=== PATIENT | female | born 1950 | race African-American/Black ===

== ENCOUNTER → 2019-04-28 | Outpatient (CLI) | payer OTHER ==
[~2019-04-28] VITALS: Ht 157.5 cm; Wt 63.5 kg
[~2019-04-28] MED LIST: BACLOFEN 10MG T10 MG PO; IBUPROFEN 600600 M1 PO; NEURONTIN 300300 M1; SINGULAIR 10 MG10 M1 PO; SINGULAIR4 MG; [UNRECOGNIZED DRUG - OTHER]
--- NOTE | 2019-04-28 10:04 | P ---
[facility] [place] [address] PROCEDURE REPORT Name: PREET CRAWFORD Room #: REG [facility]#: [id number] Admission: 04/28/19 Attend Phys: Robin Jiang MD Discharge: Date of : 48 Report #: [id number] THIS REPORT FOR: //name// CC: Robin De Leon MD DATE OF SERVICE: 04/28/2019 BRIEF HISTORY: The patient is a 68-year-old woman with a history of a rectal adenoma removed about 5 years ago. She returns today for high risk screening colonoscopy. PREOPERATIVE DIAGNOSIS: High risk screening colonoscopy due to history of rectal adenoma. POSTOPERATIVE DIAGNOSIS: Moderately severe left-sided diverticulosis coli. MEDICATIONS: Deep sedation with propofol per anesthesia. SPECIMEN: None. ESTIMATED BLOOD LOSS: None. PROCEDURE: Colonoscopy to cecum. FINDINGS: Prior to propofol sedation, procedure of colonoscopy discussed with the patient as well as potential risks and its complications. She indicates she understands and desires to proceed. DESCRIPTION OF PROCEDURE: With the patient in left lateral decubitus position, digital examination was completed, which revealed no abnormalities. Subsequently, the Olympus video colonoscope was introduced in the rectum, advanced under direct vision to the cecum. This was done with minimal difficulty. The cecum was identified by the ileocecal valve and the appendiceal orifice. I was able to advance the scope to the level of the ileocecal valve, but could not cross it due to looping of the scope. At that point, the scope was slowly withdrawn and careful circumferential views were obtained. Upon slow withdrawal of the scope, there were limitations of the prep. With cleanup, we were able to remove much of the material and overall a good prep was obtained. The mucosa within normal limits, normal vascular pattern, normal light reflex. As we withdrew the scope, no neoplastic lesions were seen. A few small diverticula were seen in the proximal colon. However, she was noted to have moderately severe diverticular disease of the sigmoid colon without endoscopic evidence of diverticulitis. Scope was withdrawn into the rectum and no abnormalities were seen. Upon retroflexion, no abnormalities were seen. The [facility] [address] [place] [address] PROCEDURE REPORT Name: PREET CRAWFORD Room #: REG [facility].#: [id number] Admission: 04/28/19 Attend Phys: Robin Jiang MD Discharge: Date of : 48 Report #: [id number] scope was withdrawn. The patient tolerated the procedure well. CONDITION OF THE PATIENT UPON DISCHARGE: Following procedure, the patient drowsy, aroused, conversant and will be discharged home when fully ambulatory. INSTRUCTIONS TO THE PATIENT AND FAMILY AT THE TIME OF DISCHARGE: No neoplastic lesions were seen. She had a tubular adenoma in the last colonoscopy. She should return in 10 years for followup colonoscopy. Last colonoscopy was more than 5 years ago. Withdrawal time from the cecum was 12 minutes 19 seconds. <ELECTRONICALLY SIGNED> By: Robin Jiang MD 04/28/19 [id number] Robin Jiang MD /nt
== END | disposition home or self-care (01) ==
LOC: GI 06:56
DX: Z12.11 Encounter for screening for malignant neoplasm of colon (principal); Z86.010 Personal history of colon polyps; K57.30 Diverticulosis of large intestine without perforation or abscess without bleeding; J45.909 Unspecified asthma, uncomplicated; D64.9 Anemia, unspecified; Z98.890 Other specified postprocedural states; Z79.899 Other long term (current) drug therapy; Z90.49 Acquired absence of other specified parts of digestive tract; Z90.710 Acquired absence of both cervix and uterus; Z91.040 Latex allergy status; Z88.0 Allergy status to penicillin
CPT/HCPCS: 62110; 62900